=== PATIENT | male | born 1985 | race Hispanic/Latino ===

== ENCOUNTER 2017-08-20 22:31 | Emergency (ER) | payer OTHER ==
[2017-08-20 23:42] LABS: CREATININE 0.8 mg/dL (0.5-1.5); POTASSIUM 3.3 mmol/L (3.5-5.1)
[2017-08-20 23:44] LABS: BASOPHILS % (AUTO) 0.4 % (0.0-5.0); EOSINOPHILS % (AUTO) 1.4 % (0.0-8.0); HEMATOCRIT 34.8 % (42-54); LYMPHOCYTES % (AUTO) 32.9 % (21.0-51.0); MEAN CORPUSCULAR HEMOGLOBIN 32.1 pg (27.0-33.0); MEAN CORPUSCULAR HGB CONC 34.6 g/dL (32.0-36.0); MEAN CORPUSCULAR VOLUME 92.7 fL (79-99); MONOCYTES % (AUTO) 11.2 % (3.0-13.0); NEUTROPHILS % (AUTO) 54.1 % (40.0-77.0); PLATELET COUNT (AUTO) 310 K/uL (130-400); RED BLOOD CELL COUNT(AUTO) 3.75 MIL/uL (4.50-6.20); RED CELL DISTRIBUTION WIDTH 13.6 % (11.0-15.5); WHITE BLOOD COUNT (AUTO) 9.1 K/uL (4.8-10.8)
[2017-08-20 23:47] LABS: ALBUMIN 3.1 g/dL (3.5-5.0); BILIRUBIN,TOTAL 0.6 mg/dL (0.2-1.0); CRP QUANTITATIVE 116.7 mg/L (0.00-9.0); TOTAL PROTEIN, SERUM 7.4 g/dL (6.0-8.3)
[2017-08-20 23:59] LABS: INR 1.04 (0.85-1.15); PARTIAL THROMBOPLASTIN TIME 29.8 SEC (26.3-35.5); PROTHROMBIN TIME 10.9 SEC (9.6-11.6)
[2017-08-21] MEDS ORDERED: IOPAMIDOL-370 75 ML VIAL IV ONE (00:20)
[2017-08-21] MEDS ORDERED: ZOSYN 3.375GM+NS 50ML 50 ML IV ONE (04:38)
[2017-08-29] MEDS ORDERED: HYDR-309 PO (15:37)
[2017-08-29] MEDS ORDERED: SULF1TAB42 PO (15:37)
== END 2017-08-21 06:20 | disposition home or self-care (01) ==
LOC: EDH 22:31
DX: L02.415 Cutaneous abscess of right lower limb (principal); Z96.641 Presence of right artificial hip joint; Z72.0 Tobacco use
CPT/HCPCS: 36415 ×2; 73701; 80053; 83605; 85025; 85610; 85730; 86140; 87040 ×2; 87186; 96365; 96366; 99285; J2543; Q9967

== ENCOUNTER 2017-09-13 15:51 | Inpatient (IN) | payer OTHER ==
[~2017-09-13] VITALS: Ht 180.3 cm; Wt 72.6 kg
[~2017-09-13 15:51] MED LIST: HYDR-309 PO; SULF1TAB42 PO
[2017-09-13 16:16] VITALS: BP 143/83
[2017-09-13 16:38] LABS: BASOPHILS % (AUTO) 0.6 % (0.0-5.0); EOSINOPHILS % (AUTO) 4.3 % (0.0-8.0); HEMATOCRIT 25.9 % (42-54); LYMPHOCYTES % (AUTO) 19.5 % (21.0-51.0); MEAN CORPUSCULAR HEMOGLOBIN 29.6 pg (27.0-33.0); MEAN CORPUSCULAR HGB CONC 33.6 g/dL (32.0-36.0); MEAN CORPUSCULAR VOLUME 87.9 fL (79-99); MONOCYTES % (AUTO) 12.9 % (3.0-13.0); NEUTROPHILS % (AUTO) 62.7 % (40.0-77.0); PLATELET COUNT (AUTO) 486 K/uL (130-400); RED BLOOD CELL COUNT(AUTO) 2.94 MIL/uL (4.50-6.20); RED CELL DISTRIBUTION WIDTH 15.4 % (11.0-15.5); WHITE BLOOD COUNT (AUTO) 5.9 K/uL (4.8-10.8)
[2017-09-13 16:46] LABS: CREATININE 0.8 mg/dL (0.5-1.5); POTASSIUM 3.8 mmol/L (3.5-5.1)
[2017-09-13 16:54] LABS: INR 1.05 (0.85-1.15); PARTIAL THROMBOPLASTIN TIME 34.7 SEC (26.3-35.5)
[2017-09-13] MEDS ORDERED: COMPOUND IV REFRIGERATED 1 EACH IVSOLN MISC PRN (17:00)
[2017-09-13] MEDS ORDERED: ONDANSETRON HCL 4 MG/2 ML VIAL IVP PRN (17:00)
[2017-09-13] MEDS ORDERED: HYDROMORPHONE PCA 10MG/50 ML ( 0.2 MG/ML ) IV PRN (17:00)
[2017-09-13] MEDS ORDERED: NALOXONE HCL 0.4 MG/1 ML ML IVP PRN (17:00)
[2017-09-13] MEDS ORDERED: SODIUM CHLORIDE 0.9% 10 ML VIAL IVP PRN (17:00)
[2017-09-13] MEDS ORDERED: VANCOMYCIN PROTOCOL PER PHARMACY IV SCH (17:00)
[2017-09-13] MEDS ORDERED: SODIUM CHLORIDE 0.9% 1000ML 1,000 ML IV SCH (17:00)
[2017-09-13] MEDS: VANCOMYCIN 1.25 GM in SODIUM CHLORIDE 0.9% 250 ML IV SCH ×2 (19:30→21:08)
[2017-09-13 20:16] VITALS: BP 136/80
[2017-09-14] VITALS (21 sets, daily range): BP systolic 124–152; BP diastolic 70–86
[2017-09-14] MEDS: VANCOMYCIN 1.25 GM in SODIUM CHLORIDE 0.9% 250 ML IV SCH ×3 (04:51→23:07)
[2017-09-14] MEDS ORDERED: CEFAZOLIN 2GM / 50 ML 50 ML IV SCH (08:45)
[2017-09-14] MEDS: CEFAZOLIN SODIUM 1 GM VIAL IVP SCH ×2 (09:00→16:45)
[2017-09-14] MEDS: SODIUM CHLORIDE 0.9% 1000ML 1,000 ML IV SCH ×3 (09:55→21:17)
[2017-09-14] MEDS ORDERED: LACTATED RINGERS 1000ML 1,000 ML IV ONE (14:14)
[2017-09-14] MEDS ORDERED: MEPERIDINE-PF 50 MG/ML SYG ONE (14:28)
[2017-09-14] MEDS ORDERED: PROPOFOL 10 MG/ML 20ML VIAL IV ONE (15:32)
[2017-09-14] MEDS ORDERED: DEXAMETHASONE SOD PHOSPHATE 10MG/ML 1ML VIAL ONE (15:32)
[2017-09-14] MEDS ORDERED: LIDOCAINE PF 2% 5ML ABBOJECT ONE (15:32)
[2017-09-14] MEDS ORDERED: GLYCOPYRROLATE 0.2 MG/ML 5 ML VIAL ONE (15:32)
[2017-09-14] MEDS ORDERED: ONDANSETRON HCL 4 MG/2 ML VIAL ONE (15:32)
[2017-09-14] MEDS ORDERED: FENTANYL CITRATE PF 50 MCG/1 ML 2ML VIAL ONE ×2 (15:33→19:00)
[2017-09-14] MEDS ORDERED: MIDAZOLAM HCL 1 MG/ML 2ML VIAL ONE (15:33)
[2017-09-14] MEDS ORDERED: ROPIVACAINE 0.5% 5MG/ML 30ML IJ ONE (15:37)
[2017-09-14] MEDS ORDERED: SUCCINYLCHOLINE CHLORIDE 20 MG/ML 10 ML VIAL ONE (15:39)
[2017-09-14] MEDS ORDERED: CEFAZOLIN SODIUM 1 GM VIAL ONE (17:25)
[2017-09-14] MEDS ORDERED: TRANEXAMIC ACID 1000MG/10ML IV ONE (17:52)
[2017-09-14] MEDS ORDERED: HYDROCODONE/ACETAMINOPHEN 5/325 MG TAB PO PRN ×2 (19:15)
[2017-09-14] MEDS ORDERED: KETOROLAC TROMETHAMINE 30MG/ML IV PRN (19:15)
[2017-09-14] MEDS ORDERED: PROMETHAZINE HCL 25 MG/ML 1ML AMPULE IM PRN (19:15)
[2017-09-14] MEDS ORDERED: TRAMADOL HCL 50 MG TABLET PO PRN (19:15)
[2017-09-14] MEDS ORDERED: POTASSIUM CHLORIDE 10% ELIXIR 20 MEQ/15 ML UDCUP PO PRN (19:15)
[2017-09-14] MEDS ORDERED: DiphenhydrAMINE HCL 50 MG/ML VIAL IVP PRN (19:15)
[2017-09-14] MEDS ORDERED: POTASSIUM CHLORIDE 20 MEQ ERTAB PO PRN (19:15)
[2017-09-14] MEDS ORDERED: LIDOCAINE HCL-MPF 1% 2ML VIAL IVP PRN (19:15)
[2017-09-14] MEDS ORDERED: POTASSIUM CHLORIDE 20MEQ/100ML 100 ML IV PRN (19:15)
[2017-09-14] MEDS ORDERED: FERROUS FUMARATE 324 MG TABLET PO PRN (19:15)
[2017-09-14] MEDS ORDERED: TEMAZEPAM 15 MG CAPSULE PO PRN (19:15)
[2017-09-14] MEDS ORDERED: DIPHENHYDRAMINE HCL 25 MG CAPSULE PO PRN (19:15)
[2017-09-14] MEDS ORDERED: MEPERIDINE-PF 25 MG/ML SYG ONE (19:55)
[2017-09-14 20:37] LABS: HEMATOCRIT 24.9 % (42-54)
[2017-09-14] MEDS: FAMOTIDINE 20MG TAB 20 MG TAB PO SCH (21:16)
[2017-09-14] MEDS: CELECOXIB 200 MG CAP PO SCH (21:16)
[2017-09-14] MEDS: PREGABALIN 25 MG CAP PO SCH (21:16)
[2017-09-14] MEDS ORDERED: PHARMACY COMMUNICATION MISC SCH (23:45)
[2017-09-15] MEDS: VANCOMYCIN 1GM+NS 250ML 250 ML IV SCH ×2 (01:15→12:18)
[2017-09-15 03:10] VITALS: BP 152/70
[2017-09-15] MEDS: SODIUM CHLORIDE 0.9% 1000ML 1,000 ML IV SCH ×5 (04:03→20:43)
[2017-09-15 05:15] LABS: HEMATOCRIT 21.7 % (42-54); MEAN CORPUSCULAR HEMOGLOBIN 30.4 pg (27.0-33.0); MEAN CORPUSCULAR HGB CONC 34.6 g/dL (32.0-36.0); MEAN CORPUSCULAR VOLUME 87.7 fL (79-99); PLATELET COUNT (AUTO) 444 K/uL (130-400); RED BLOOD CELL COUNT(AUTO) 2.47 MIL/uL (4.50-6.20); RED CELL DISTRIBUTION WIDTH 15.6 % (11.0-15.5); WHITE BLOOD COUNT (AUTO) 5.7 K/uL (4.8-10.8)
[2017-09-15 05:18] LABS: CREATININE 0.6 mg/dL (0.5-1.5); POTASSIUM 3.7 mmol/L (3.5-5.1)
[2017-09-15 05:22] LABS: PROTHROMBIN TIME 10.5 SEC (9.6-11.6)
[2017-09-15] MEDS: CEFAZOLIN SODIUM 1 GM VIAL IVP SCH ×2 (08:14→22:14)
[2017-09-15] MEDS: FAMOTIDINE 20MG TAB 20 MG TAB PO SCH ×2 (08:15→20:39)
[2017-09-15] MEDS: CALCIUM CARBONATE 500 MG TABLET PO PRN ×2 (08:15→20:39)
[2017-09-15] MEDS: CELECOXIB 200 MG CAP PO SCH ×2 (08:15→20:39)
[2017-09-15] MEDS: POLYETHYLENE GLYCOL 3350 17 GM POWD.PACK PO SCH (08:15)
[2017-09-15] MEDS: PREGABALIN 25 MG CAP PO SCH ×2 (08:15→20:39)
[2017-09-15] MEDS: ENOXAPARIN SODIUM 40 MG/0.4 ML SYRINGE SQ SCH (08:16)
[2017-09-15 08:27] VITALS: BP 137/78
[2017-09-15 11:39] VITALS: BP 82/64
[2017-09-15] MEDS: PSYLLIUM SEED 1 EACH PACKET PO SCH (12:18)
[2017-09-15 16:43] VITALS: BP 118/64
[2017-09-15 19:54] VITALS: BP 135/69
[2017-09-15 23:55] VITALS: BP 124/70
[2017-09-16 04:00] VITALS: BP 144/84
[2017-09-16 04:38] LABS: HEMATOCRIT 26.5 % (42-54); MEAN CORPUSCULAR HEMOGLOBIN 29.5 pg (27.0-33.0); MEAN CORPUSCULAR HGB CONC 34.6 g/dL (32.0-36.0); MEAN CORPUSCULAR VOLUME 85.3 fL (79-99); PLATELET COUNT (AUTO) 494 K/uL (130-400); RED BLOOD CELL COUNT(AUTO) 3.11 MIL/uL (4.50-6.20); WHITE BLOOD COUNT (AUTO) 8.4 K/uL (4.8-10.8)
[2017-09-16 04:45] LABS: CREATININE 0.5 mg/dL (0.5-1.5); POTASSIUM 3.9 mmol/L (3.5-5.1)
[2017-09-16 04:49] LABS: INR 0.98 (0.85-1.15); PROTHROMBIN TIME 10.3 SEC (9.6-11.6)
[2017-09-16] MEDS: CELECOXIB 200 MG CAP PO SCH ×2 (09:42→19:53)
[2017-09-16] MEDS: POLYETHYLENE GLYCOL 3350 17 GM POWD.PACK PO SCH (09:42)
[2017-09-16] MEDS: PREGABALIN 25 MG CAP PO SCH ×2 (09:42→19:53)
[2017-09-16] MEDS: FAMOTIDINE 20MG TAB 20 MG TAB PO SCH ×2 (09:43→19:53)
[2017-09-16] MEDS: ENOXAPARIN SODIUM 40 MG/0.4 ML SYRINGE SQ SCH (09:44)
[2017-09-16] MEDS: SODIUM CHLORIDE 0.9% 1000ML 1,000 ML IV SCH ×2 (10:45→19:53)
[2017-09-16 11:00] VITALS: BP 129/80
[2017-09-16] MEDS: PSYLLIUM SEED 1 EACH PACKET PO SCH (12:29)
[2017-09-16 16:00] VITALS: BP 120/63
[2017-09-16] MEDS ORDERED: BISACODYL 5 MG TABLET.DR PO PRN (19:15)
[2017-09-16 19:40] VITALS: BP 126/68
[2017-09-16] MEDS: CEFAZOLIN SODIUM 1 GM VIAL IVP SCH (19:40)
[2017-09-17] VITALS: BP 135/74
[2017-09-17 04:00] VITALS: BP 119/66
[2017-09-17 04:40] LABS: HEMATOCRIT 27.3 % (42-54); MEAN CORPUSCULAR HEMOGLOBIN 29.3 pg (27.0-33.0); PLATELET COUNT (AUTO) 524 K/uL (130-400); RED BLOOD CELL COUNT(AUTO) 3.17 MIL/uL (4.50-6.20); RED CELL DISTRIBUTION WIDTH 15.7 % (11.0-15.5); WHITE BLOOD COUNT (AUTO) 8.4 K/uL (4.8-10.8)
[2017-09-17 04:42] LABS: CREATININE 0.7 mg/dL (0.5-1.5); POTASSIUM 4.2 mmol/L (3.5-5.1)
[2017-09-17 04:47] LABS: INR 0.94 (0.85-1.15); PROTHROMBIN TIME 9.9 SEC (9.6-11.6)
[2017-09-17] MEDS: SODIUM CHLORIDE 0.9% 1000ML 1,000 ML IV SCH (05:46)
[2017-09-17 07:58] VITALS: BP 137/82
[2017-09-17] MEDS: ENOXAPARIN SODIUM 40 MG/0.4 ML SYRINGE SQ SCH (09:06)
[2017-09-17] MEDS: CELECOXIB 200 MG CAP PO SCH (09:10)
[2017-09-17] MEDS: PREGABALIN 25 MG CAP PO SCH (09:10)
[2017-09-17] MEDS: POLYETHYLENE GLYCOL 3350 17 GM POWD.PACK PO SCH (09:10)
[2017-09-17] MEDS: FAMOTIDINE 20MG TAB 20 MG TAB PO SCH (09:10)
[2017-09-17] MEDS ORDERED: SULF1TAB42 PO (11:16)
[2017-09-17] MEDS ORDERED: HYDR-309 PO (11:16)
[2017-09-17 11:20] VITALS: BP 116/58
[2017-09-17] MEDS ORDERED: VANCOMYCIN 1GM+NS 250ML 250 ML IV SCH (11:45)
[2017-09-17] MEDS: PSYLLIUM SEED 1 EACH PACKET PO SCH (12:07)
[2017-09-17] MEDS ORDERED: BISACODYL 10 MG SUPP.RECT RC PRN (19:15)
== END 2017-09-17 14:35 | disposition home or self-care (01) | DRG 464 ==
LOC: EDH 15:51 → 4AH 15:52
PROVIDERS: ADMIT Orthopaedic Surgery; ATTEND Orthopaedic Surgery
PROC: 30233N1 Transfusion of Nonautologous Red Blood Cells into Peripheral Vein, Percutaneous Approach (ICD-10-PCS; 2017-09-14)
PROC: 0QS404Z Reposition Right Acetabulum with Internal Fixation Device, Open Approach (ICD-10-PCS; principal; 2017-09-14 16:30)
PROC: 0SPA0JZ Removal of Synthetic Substitute from Right Hip Joint, Acetabular Surface, Open Approach (ICD-10-PCS; 2017-09-14 16:30)
DX: S32.401A Unspecified fracture of right acetabulum, initial encounter for closed fracture (principal); S73.001A Unspecified subluxation of right hip, initial encounter; K76.0 Fatty (change of) liver, not elsewhere classified; W18.30XA Fall on same level, unspecified, initial encounter; Z91.19 Patient's noncompliance with other medical treatment and regimen; Y93.89 Activity, other specified; Y92.098 Other place in other non-institutional residence as the place of occurrence of the external cause; Y99.8 Other external cause status
CPT/HCPCS: 36415; 36430; 72192; 76000; 80048; 80202; 85014; 85018; 85025; 85027; 85610; 85730; 86850; 86900; 86901; 86922; 87070; 87076; 87205; 88304; 88311; 97039; A4218; J0330; J0690; J1100; J1170; J1650; J2001; J2175; J2250; J2405; J2550; J2704; J2795; J3010; J3370; J3490; J7030; J7120; P9016